=== PATIENT | female | born 1940 | race Caucasian/White ===

== ENCOUNTER 2019-02-10 07:01 | Emergency (ER) | payer MEDICARE, BC ==
[~2019-02-10] VITALS: Ht 157.5 cm; Wt 61.2 kg
[~2019-02-10 07:01] MED LIST: CYAN1000 PO; FOLI400 PO; METO25 PO; OLME40 PO; VITAMIN D2000 UNIT PO
[2019-02-10] MEDS ORDERED: ATOR10 PO (07:14)
[2019-02-10 07:29] LABS: BASOPHILS ABSOLUTE AUTO 0.05 K/mm3 (0.00-0.23); BASOPHILS PERCENT AUTO 1 % (0-2); EOSINOPHILS ABSOLUTE AUTO 0.72 K/mm3 (0.00-0.68); EOSINOPHILS PERCENT AUTO 13 % (0-6); Hematocrit 40.5 % (33.0-51.0); IMMATURE GRAN ABSOLUTE AUTO 0.02 K/mm3 (0.00-0.10); IMMATURE GRAN PERCENT AUTO 0 % (0-1); LYMPHOCYTES ABSOLUTE AUTO 1.77 K/mm3 (0.84-5.20); LYMPHOCYTES PERCENT AUTO 32 % (21-46); MONOCYTES ABSOLUTE AUTO 0.66 K/mm3 (0.16-1.47); MONOCYTES PERCENT AUTO 12 % (4-13); Mean Corpuscular HGB 29.9 pg (26.0-34.0); Mean Corpuscular HGB Conc 32.1 g/dL (31.5-36.5); Mean Corpuscular Volume 93 fL (80-100); Mean Platelet Volume 10.9 fL (9.1-12.4); NEUTROPHILS ABSOLUTE AUTO 2.39 K/mm3 (1.96-9.15); NEUTROPHILS PERCENT AUTO 43 % (41-73); Platelet Count 182 K/mm3 (150-400); RDW Coefficient Variation 13.1 % (11.7-14.2); RDW Standard Deviation 44.9 fL (35.1-46.3); Red Blood Cell Count 4.35 M/mm3 (3.80-5.20); White Blood Cell Count 5.61 K/mm3 (4.00-11.30)
[2019-02-10 07:52] LABS: Alanine Aminotransfer (ALT/SGP 27 U/L (12-78); Albumin, Blood 3.8 g/dL (3.4-5.0); Albumin/Globulin Ratio 0.9 (0.8-1.8); Alk Phos 64 U/L (50-136); Anion Gap 5 mmol/L (6-16); Aspartate Aminotrans (AST/SGOT 22 U/L (12-37); Bilirubin, Total 0.6 mg/dL (0.1-1.0); Blood Urea Nitrogen 19 mg/dL (8-24); Bun/Creatinine Ratio 24.2 (12.0-20.0); CO2, Blood 30 mmol/L (21-32); Calcium, Blood 9.8 mg/dL (8.5-10.1); Chloride, Blood 105 mmol/L (98-108); Creatinine, Blood 0.78 mg/dL (0.40-1.00); Globulin, Blood 4.3 g/dL (2.2-4.0); Glomerular Filtration Rate >60 (60-); Glucose, Blood 89 mg/dL (70-99); Potassium, Blood 3.4 mmol/L (3.5-5.5); Sodium, Blood 140 mmol/L (136-145); Total Protein, Blood 8.1 g/dL (6.4-8.2); Troponin I <0.015 ng/mL (0.000-0.040)
== END 2019-02-10 10:53 | disposition home or self-care (01) ==
LOC: ER 07:01
PROVIDERS: Emergency Medicine
DX: R07.89 Other chest pain (principal); I10 Essential (primary) hypertension; Z79.899 Other long term (current) drug therapy
CPT/HCPCS: 36415; 71046; 80053; 84484; 85025; 93005; 93010; 99285-25

== ENCOUNTER 2019-05-10 16:55 | Inpatient (IN) | payer MEDICARE, BC ==
[~2019-05-10] VITALS: Ht 162.6 cm; Wt 61.9 kg
[~2019-05-10 16:55] MED LIST changes: +ATOR10 PO
[2019-05-12] MEDS ORDERED: FISH OIL 1,0001 EAC1 PO (06:35)
--- NOTE | 2019-05-12 07:46 | NUR ---
Ambulatory in Day Surgery History, Chart, Medications and Allergies reviewed before start of procedure.Patient confirms NPO status and agrees with scheduled surgery. Patient reports completing Chlorhexadine shower X2 prior to admission to hospital.Surgical site prepped with 2% Chlorhexidine cloth wipe.
--- NOTE | 2019-05-12 10:26 | NUR ---
0954-PT BECAME TACHY WHEN LMA REMOVED. MED WITH [facility] FOR C/O HIP PAIN. DR. HEBERT NOTIFIED. 0959-ESMOLOL 30MG GIVEN BY DR. HEBERT. PT HAD MONOFOCAL PVCS IN OR PER DR. HEBERT. 1002-PT BACK TO PRETACHYCARDIA RHYTHM OF SINUS WITH SPORADIC PVCS. ALERT AND ORIENTED. STATES NO PAIN. X RAY LEFT HIP DONE.
[2019-05-12 14:48] LABS: BASOPHILS ABSOLUTE AUTO 0.02 K/mm3 (0.00-0.23); BASOPHILS PERCENT AUTO 0 % (0-2); EOSINOPHILS PERCENT AUTO 0 % (0-6); Hematocrit 33.4 % (33.0-51.0); Hemoglobin 11.1 g/dL (11.5-16.0); IMMATURE GRAN ABSOLUTE AUTO 0.04 K/mm3 (0.00-0.10); IMMATURE GRAN PERCENT AUTO 0 % (0-1); LYMPHOCYTES ABSOLUTE AUTO 0.48 K/mm3 (0.84-5.20); LYMPHOCYTES PERCENT AUTO 4 % (21-46); MONOCYTES ABSOLUTE AUTO 0.32 K/mm3 (0.16-1.47); MONOCYTES PERCENT AUTO 3 % (4-13); Mean Corpuscular HGB 30.6 pg (26.0-34.0); Mean Corpuscular HGB Conc 33.2 g/dL (31.5-36.5); Mean Corpuscular Volume 92 fL (80-100); Mean Platelet Volume 10.9 fL (9.1-12.4); NEUTROPHILS ABSOLUTE AUTO 10.82 K/mm3 (1.96-9.15); NEUTROPHILS PERCENT AUTO 93 % (41-73); Platelet Count 179 K/mm3 (150-400); RDW Coefficient Variation 12.6 % (11.7-14.2); RDW Standard Deviation 42.6 fL (35.1-46.3); Red Blood Cell Count 3.63 M/mm3 (3.80-5.20); White Blood Cell Count 11.68 K/mm3 (4.00-11.30)
[2019-05-12 15:15] LABS: Alanine Aminotransfer (ALT/SGP 24 U/L (12-78); Albumin, Blood 3.3 g/dL (3.4-5.0); Albumin/Globulin Ratio 0.9 (0.8-1.8); Alk Phos 60 U/L (50-136); Anion Gap 5 mmol/L (6-16); Aspartate Aminotrans (AST/SGOT 31 U/L (12-37); Bilirubin, Total 0.7 mg/dL (0.1-1.0); Blood Urea Nitrogen 20 mg/dL (8-24); CO2, Blood 28 mmol/L (21-32); Calcium, Blood 9.4 mg/dL (8.5-10.1); Chloride, Blood 98 mmol/L (98-108); Creatinine, Blood 0.77 mg/dL (0.40-1.00); Globulin, Blood 3.7 g/dL (2.2-4.0); Glomerular Filtration Rate >60 (60-); Glucose, Blood 210 mg/dL (70-99); Magnesium, Blood 1.5 mg/dL (1.6-2.4); Phosphorus, Blood 2.8 mg/dL (2.5-4.9); Potassium, Blood 3.5 mmol/L (3.5-5.5); Sodium, Blood 131 mmol/L (136-145)
--- NOTE | 2019-05-12 15:18 | NUR ---
NURSING PCU DAYSHIFT: Assumed care of pt at approx 1200. Arrived from OR via bed accompanied by RN, daughter at bedside. Pt and daughter oriented to unit and call system. Pt denies any pain at rest though has slight discomfort w/movement. Dressing in place to L hip r/t recent L hip sx, dressing intact, mild swelling around site, skin otherwise intact. C/O numbness in b/l feet since sx. Tele in place, afib upon arrival w/HR 150-160's, hypertensive, no noted edema, no c/o CP/pressure. L/S cta t/o, O2 sat upper 90's on RA, denies dyspnea, no noted cough. Abd SNT, BT+, c/o nausea though tolerating sips of H2O w/no emesis, voiding clear/yellow urine. PIV x1, s/l, flushes well. Admitting surgeon notified of pt's cardiac status, new d/o received for PMD consult, [facility] physician notified. PMD d/o received, meds administered as ordered. Pt converted to NSR after IV metoprolol, HR 80's w/several PVC's. PMD notified, f/u EKG completed. Pt worked w/P.T. this afternoon, tolerated fairly well and was able to xfer to BS, two staff assist used d/t pt's c/o LE numbness. No s/s of acute distress at this time, call light in reach, cont to monitor for any changes.
--- NOTE | 2019-05-12 18:03 | NUR ---
NURSING PCU DAYSHIFT SUMMARY: Pt has done well since arrival to unit. Remains NSR w/PVC's, no c/o CP/pressure, no noted palpitations. Nausea is being treated w/meds as ordered and continues to improve. Pain being well managed w/scheduled meds, pt does not required PRN pain med management at this time. Cancelled cardiology consult per PMD d/t pt remaining NSR. ECHO completed as ordered, mag rider administered. Updated plan of care discussed w/pt and daughter, questions addressed. Call light remains at bedside, pt has demonstrated appropriate use, cont to monitor until rpt is given to NOC RN.
--- NOTE | 2019-05-13 00:04 | NUR ---
PATIENT UP TO THE COMMODE WITH SBA. PATIENT INSTRUCTED HOW TO MOVE. ABLE TO USE WALKER AND TRANSFER SELF TO THE COMMODE. PATIENT BECAME NAUSATED WITH MOVEMENT. ASSISTED BACK TO BED. PATIENT ABLE TO GET INTO BED WITH NO HANDS ON.
[2019-05-13 04:15] LABS: BASOPHILS ABSOLUTE AUTO 0.01 K/mm3 (0.00-0.23); BASOPHILS PERCENT AUTO 0 % (0-2); EOSINOPHILS PERCENT AUTO 0 % (0-6); Hematocrit 30.6 % (33.0-51.0); Hemoglobin 10.3 g/dL (11.5-16.0); IMMATURE GRAN ABSOLUTE AUTO 0.06 K/mm3 (0.00-0.10); IMMATURE GRAN PERCENT AUTO 1 % (0-1); LYMPHOCYTES ABSOLUTE AUTO 1.13 K/mm3 (0.84-5.20); LYMPHOCYTES PERCENT AUTO 9 % (21-46); MONOCYTES ABSOLUTE AUTO 1.16 K/mm3 (0.16-1.47); MONOCYTES PERCENT AUTO 9 % (4-13); Mean Corpuscular HGB 30.7 pg (26.0-34.0); Mean Corpuscular HGB Conc 33.7 g/dL (31.5-36.5); Mean Corpuscular Volume 91 fL (80-100); Mean Platelet Volume 10.9 fL (9.1-12.4); NEUTROPHILS ABSOLUTE AUTO 10.95 K/mm3 (1.96-9.15); NEUTROPHILS PERCENT AUTO 82 % (41-73); Platelet Count 156 K/mm3 (150-400); RDW Coefficient Variation 12.7 % (11.7-14.2); RDW Standard Deviation 42.1 fL (35.1-46.3); Red Blood Cell Count 3.36 M/mm3 (3.80-5.20); White Blood Cell Count 13.31 K/mm3 (4.00-11.30)
[2019-05-13 04:38] LABS: Bun/Creatinine Ratio 25.7 (12.0-20.0); Calcium, Blood 9.1 mg/dL (8.5-10.1); Creatinine, Blood 1.09 mg/dL (0.40-1.00); Magnesium, Blood 1.9 mg/dL (1.6-2.4); Potassium, Blood 3.8 mmol/L (3.5-5.5)
--- NOTE | 2019-05-13 05:38 | NUR ---
PATIENT ABLE TO MOVE INDEPENDENTLY IN BED. PATIENT HAS ICE PACK TO LEFT HIP. PATIENT HAS RECIEVED PAIN MEDICATION EARLY IN THE NIGHT. COMPLAINS OF NAUSEA WITH MOVEMENT. PATIENT DAUGHTER AT BEDSIDE TELLING HER MOM WHAT TO DO OR TAKE FREQUENTLY. PATIENT EDUCATED THAT SHE DOES NOT HAVE TO DO OR TAKE ANYTHING SHE DOES NOT FEEL COMFORTABLE WITH. GIVEN EAR PLUGS AND EYE MASK TO PROMOTE SLEEP.
--- NOTE | 2019-05-13 07:23 | NUR ---
pt laying in bed awake a/ox3, pleasant and cooperative with care, follows commands well, denies any complaints of pain at this time, states PT has been getting her oob, lungs are clear t/o, resp even and unlabored, no cough noted, hrr, tele in place running sr per monitor, see strip, no edema noted ppp+2, cap refill <3sec, vs stable afebrile, iv site is clear and patent, s.l. at this time, btx4, abd flat soft nontender, voids without diff, skin has left hip dressing, with cooling device in place, no bruising, swelling, redness noted, maew, good strength in dpfe, computational biologist =, makeda, call light in reach.
--- NOTE | 2019-05-13 11:00 | NUR ---
pt has been transferred to surgical floor via wheelchair with P.T. and silk screen printer helper in attendence. report given to william MUNIZ.
--- NOTE | 2019-05-13 11:13 | NUR ---
TRANSFER: PT TRANSFER TO ROOM 213 FROM PCU. DAUGHTER AT BEDSIDE. PT AMBULATED WITH THERAPY TO ROOM. PLACED IN RECLINER CHAIR WITH POLAR PACK AND PAS IN PLACE. HUNG HOSE ON. AQUACEL DRESSING CDI. PT DENIES PAIN. ICE WATER AND COFFEE GIVEN. IV S.L. IN SPEAKING WITH PATIENT SHE SEEMS VERY UNSURE AND CONFUSED ABOUT DISCHARGE PLAN OF CARE. DISCUSSED HOSPITAL ROUTINE AND DC PLAN. REASSURED THAT MD WILL DISCUSS WITH HER FOLLOW UP AND WHEN SHE IS READY TO GO HOME.
--- NOTE | 2019-05-13 15:15 | NUR ---
THERAPY: PT UP TO AMBULATE HALLWAYS WITH SBA AND WALKER. PT DENIES PAIN AT THIS TIME. WILL CONT TO MONITOR.
--- NOTE | 2019-05-13 18:20 | NUR ---
PT HAS BEEN STABLE SINCE PCU TRANSFER. PT HAS BEEN IN NSR PER PRETZEL PACKER. PT DENIES ANY PAIN. MANAGED WITH SCHEDULED TORADOL AND TYLENOL. POLAR PACK IN PLACE. PT WORKED WELL WITH THERAPY. AMBULATES WITH SBA. VOIDING WELL. BETO DIET. LOVENOX STARTED PER [facility] DO[facility] TODAY. MEGA CDI. IV S.L. PT FORGETFUL AT TIMES BUT USES CALL LIGHT APPROPRIATELY PRN.
--- NOTE | 2019-05-14 05:49 | NUR ---
SHIFT SUMMARY NO ACUTE CHANGES NOTED THROUGH THE NIGHT. VSS, NSR WITH NO EPISODES OF AFIB NOTED. DRSG REMAINS C/D/I. PAIN MANAGED PER EMAR. 1 PERCOCET WAS GIVEN PER PT REQUEST. VOIDING WNL. 1 ASSIST TO THE BATHROOM USING FWW/GAIT BELT. EDUCATION PROVIDED ABOUT HIP PRECAUTIONS AND POSITIONING IN BED. DAUGHTER IS AT THE BEDSIDE. CALL LIGHT IN REACH
--- NOTE | 2019-05-14 09:03 | NUR ---
DR Chris SNOW HERE TO SEE PT. FAMILY PRESENT.
--- NOTE | 2019-05-14 09:10 | NUR ---
DR SNOW REPORTS MAY TAKE OFF TELE AT THIS TIME.
--- NOTE | 2019-05-14 09:20 | NUR ---
DR HURD HERE TO SEE PT.
[2019-05-14] MEDS ORDERED: METO50ER PO (13:05)
[2019-05-14] MEDS ORDERED: ACET500 PO (13:06)
[2019-05-14] MEDS ORDERED: Colace100 MG PO (13:09)
[2019-05-14] MEDS ORDERED: Milk Of Ma400 MG/5 M PO (13:10)
[2019-05-14] MEDS ORDERED: Percocet 5-3251 EACH PO (13:15)
[2019-05-14] MEDS ORDERED: CELE100 PO (13:17)
--- NOTE | 2019-05-14 13:25 | NUR ---
PT REPORTED TO HAVE PAIN IN CHEST, EPIGASTRIC AREA. PT VSS. PT TELE CONT TO BE IN ROOM, PLACED ON PT WHICH WAS NSR. PT VSS. PT REPORTED THAT IT CLEARED "MUST HAVE BEEN A BUBBLE. DR Chris SNOW NOTIFIED REPORTS PT MAY CONT WITH PLAN TO GO HOME. FAMILY IN ROOM.
--- NOTE | 2019-05-14 13:45 | NUR ---
DISCHARGE: PT EATING AND DRINKING. PT VOIDING, PASSING GAS. PT CLEARED THERAPY TO GO HOME. PT DAUGHTER TO STAY WITH PT. PT/FAMILY REPORTS HAVING APPR EQUIP AT HOME. DR HURD AND DR Chris SNOW BEEN TO SEE PT TODAY. PT SENT WITH PAPERWORK INCLUDING SCRIPT. PT DENIES CP OR SOB.
== END 2019-05-14 13:49 | disposition home or self-care (01) | DRG 470 ==
LOC: SURS 05-12 05:47 → PRE IP 05-12 07:30 → PCU 05-12 12:18 → SURS 05-13 11:13
PROVIDERS: Hospitalist; ADMIT Orthopaedic Surgery
PROC: 0SRB0JZ Replacement of Left Hip Joint with Synthetic Substitute, Open Approach (ICD-10-PCS; principal; 2019-05-12 07:30)
DX: M16.12 Unilateral primary osteoarthritis, left hip (principal); E87.1 Hypo-osmolality and hyponatremia; I47.1 Supraventricular tachycardia; R44.0 Auditory hallucinations; E78.5 Hyperlipidemia, unspecified; F41.9 Anxiety disorder, unspecified; G47.33 Obstructive sleep apnea (adult) (pediatric); G62.9 Polyneuropathy, unspecified; I10 Essential (primary) hypertension; I48.0 Paroxysmal atrial fibrillation; E87.6 Hypokalemia; E83.42 Hypomagnesemia; Z85.3 Personal history of malignant neoplasm of breast; K21.9 Gastro-esophageal reflux disease without esophagitis
CPT/HCPCS: 36415; 72170; 80048; 80053; 83735; 83880; 84100; 85025; 86850; 86900; 86901; 88300; 93005; 93010; 93306; 97110; 97116; 97161; 97530; C1776; J0690; J1100; J1650; J1885; J2250; J2405; J2704; J2765; J3010; J3475; J7120

== ENCOUNTER 2019-08-08 15:50 | Emergency (ER) | payer MEDICARE, BC ==
[~2019-08-08] VITALS: Ht 157.5 cm; Wt 59.3 kg
[~2019-08-08 15:50] MED LIST changes: +ACET500 PO; +CELE100 PO; +Colace100 MG PO; +FISH OIL 1,0001 EAC1 PO; +METO50ER PO; +Milk Of Ma400 MG/5 M PO; +Percocet 5-3251 EACH PO
[2019-08-08 16:35] LABS: BASOPHILS ABSOLUTE AUTO 0.04 K/mm3 (0.00-0.23); BASOPHILS PERCENT AUTO 1 % (0-2); EOSINOPHILS ABSOLUTE AUTO 0.43 K/mm3 (0.00-0.68); EOSINOPHILS PERCENT AUTO 7 % (0-6); Hematocrit 39.1 % (33.0-51.0); Hemoglobin 12.4 g/dL (11.5-16.0); IMMATURE GRAN ABSOLUTE AUTO 0.01 K/mm3 (0.00-0.10); IMMATURE GRAN PERCENT AUTO 0 % (0-1); LYMPHOCYTES ABSOLUTE AUTO 2.18 K/mm3 (0.84-5.20); LYMPHOCYTES PERCENT AUTO 34 % (21-46); MONOCYTES ABSOLUTE AUTO 0.73 K/mm3 (0.16-1.47); MONOCYTES PERCENT AUTO 11 % (4-13); Mean Corpuscular HGB 29.3 pg (26.0-34.0); Mean Corpuscular HGB Conc 31.7 g/dL (31.5-36.5); Mean Corpuscular Volume 92 fL (80-100); Mean Platelet Volume 11.4 fL (9.1-12.4); NEUTROPHILS ABSOLUTE AUTO 3.06 K/mm3 (1.96-9.15); NEUTROPHILS PERCENT AUTO 47 % (41-73); Platelet Count 190 K/mm3 (150-400); RDW Coefficient Variation 13.5 % (11.7-14.2); RDW Standard Deviation 45.8 fL (35.1-46.3); Red Blood Cell Count 4.23 M/mm3 (3.80-5.20); White Blood Cell Count 6.45 K/mm3 (4.00-11.30)
[2019-08-08 17:10] LABS: Alanine Aminotransfer (ALT/SGP 19 U/L (12-78); Albumin, Blood 3.4 g/dL (3.4-5.0); Albumin/Globulin Ratio 0.8 (0.8-1.8); Alk Phos 79 U/L (50-136); Anion Gap 7 mmol/L (6-16); Aspartate Aminotrans (AST/SGOT 19 U/L (12-37); Bilirubin, Total 0.5 mg/dL (0.1-1.0); Blood Urea Nitrogen 27 mg/dL (8-24); Bun/Creatinine Ratio 29.1 (12.0-20.0); CO2, Blood 26 mmol/L (21-32); Calcium, Blood 9.6 mg/dL (8.5-10.1); Chloride, Blood 105 mmol/L (98-108); Creatinine, Blood 0.93 mg/dL (0.40-1.00); Globulin, Blood 4.3 g/dL (2.2-4.0); Glomerular Filtration Rate >60 (60-); Glucose, Blood 95 mg/dL (70-99); Potassium, Blood 3.7 mmol/L (3.5-5.5); Sodium, Blood 138 mmol/L (136-145); Total Protein, Blood 7.7 g/dL (6.4-8.2); Troponin I <0.015 ng/mL (0.000-0.040)
== END 2019-08-08 16:46 | disposition left against medical advice (07) ==
LOC: EDBD 15:50 → ER 15:50
PROVIDERS: Physician Assistant
DX: Z53.21 Procedure and treatment not carried out due to patient leaving prior to being seen by health care provider (principal)
CPT/HCPCS: 36415; 80053; 84484; 85025; 93005; 93010; 99284-25

== ENCOUNTER → 2019-12-01 | Outpatient (CLI) | payer MEDICARE, BC | END | disposition home or self-care (01) | LOC: LAB EV 11:40 → LAB SHORT 11:40 | DX: R30.9 Painful micturition, unspecified (principal) | CPT/HCPCS: 87086 ==

== ENCOUNTER 2020-10-18 21:02 | Emergency (ER) | payer MEDICARE, BC ==
[~2020-10-18] VITALS: Ht 157.5 cm; Wt 68.0 kg
[~2020-10-18 21:02] MED LIST changes: +ACET325 PO; +ESCI10 PO; +LOSA50 PO; +Vitamin D2000 UNIT PO; +XARELTO15 M1 PO
[2020-10-18 22:04] LABS: BASOPHILS ABSOLUTE AUTO 0.02 K/mm3 (0.00-0.23); BASOPHILS PERCENT AUTO 0 % (0-2); EOSINOPHILS ABSOLUTE AUTO 0.34 K/mm3 (0.00-0.68); EOSINOPHILS PERCENT AUTO 7 % (0-6); Hematocrit 37.8 % (33.0-51.0); Hemoglobin 12.1 g/dL (11.5-16.0); IMMATURE GRAN ABSOLUTE AUTO 0.01 K/mm3 (0.00-0.10); IMMATURE GRAN PERCENT AUTO 0 % (0-1); LYMPHOCYTES PERCENT AUTO 34 % (21-46); MONOCYTES ABSOLUTE AUTO 0.59 K/mm3 (0.16-1.47); MONOCYTES PERCENT AUTO 11 % (4-13); Mean Corpuscular HGB 29.9 pg (26.0-34.0); Mean Corpuscular Volume 93 fL (80-100); Mean Platelet Volume 12.1 fL (9.1-12.4); NEUTROPHILS ABSOLUTE AUTO 2.47 K/mm3 (1.96-9.15); NEUTROPHILS PERCENT AUTO 47 % (41-73); Platelet Count 144 K/mm3 (150-400); RDW Coefficient Variation 13.7 % (11.7-14.2); RDW Standard Deviation 47.2 fL (35.1-46.3); Red Blood Cell Count 4.05 M/mm3 (3.80-5.20); White Blood Cell Count 5.23 K/mm3 (4.00-11.30)
[2020-10-18 22:17] LABS: Alanine Aminotransfer (ALT/SGP 24 U/L (12-78); Albumin, Blood 3.4 g/dL (3.4-5.0); Albumin/Globulin Ratio 0.8 (0.8-1.8); Alk Phos 66 U/L (50-136); Anion Gap 4 mmol/L (6-16); Aspartate Aminotrans (AST/SGOT 21 U/L (12-37); Bilirubin, Total 0.4 mg/dL (0.1-1.0); Blood Urea Nitrogen 31 mg/dL (8-24); Bun/Creatinine Ratio 44.3 (12.0-20.0); CO2, Blood 30 mmol/L (21-32); Calcium, Blood 9.7 mg/dL (8.5-10.1); Chloride, Blood 105 mmol/L (98-108); Globulin, Blood 4.1 g/dL (2.2-4.0); Glomerular Filtration Rate >60 (60-); Glucose, Blood 105 mg/dL (70-99); Potassium, Blood 4.2 mmol/L (3.5-5.5); Sodium, Blood 139 mmol/L (136-145); Total Protein, Blood 7.5 g/dL (6.4-8.2)
[2020-10-18 22:40] LABS: Troponin I <0.015 ng/mL (0.000-0.040)
== END 2020-10-19 00:08 | disposition home or self-care (01) ==
LOC: ER 21:02
PROVIDERS: Emergency Medicine
DX: R55 Syncope and collapse (principal); R11.2 Nausea with vomiting, unspecified; Z79.01 Long term (current) use of anticoagulants; Z79.899 Other long term (current) drug therapy
CPT/HCPCS: 36415; 80053; 84484; 85025; 93005; 93010; 99284-25

== ENCOUNTER → 2021-01-10 | Outpatient (CLI) | payer MEDICARE, BC ==
[2021-01-11 09:32] LABS: Candida species (DNA Probe) Negative (NEGATIVE); G. vaginalis (DNA Probe) Negative (NEGATIVE); T. vaginalis (DNA Probe) Negative (NEGATIVE)
== END | disposition home or self-care (01) ==
LOC: LAB SHORT 13:49
PROVIDERS: Family Medicine
DX: N76.0 Acute vaginitis (principal)
CPT/HCPCS: 87480; 87510; 87660

== ENCOUNTER 2021-04-06 11:46 | Emergency (ER) | payer MEDICARE, BC ==
[~2021-04-06] VITALS: Ht 154.9 cm; Wt 52.2 kg
[2021-04-06 12:28] LABS: BASOPHILS ABSOLUTE AUTO 0.03 K/mm3 (0.00-0.23); BASOPHILS PERCENT AUTO 1 % (0-2); EOSINOPHILS ABSOLUTE AUTO 0.22 K/mm3 (0.00-0.68); EOSINOPHILS PERCENT AUTO 4 % (0-6); Hematocrit 39.6 % (33.0-51.0); Hemoglobin 12.7 g/dL (11.5-16.0); IMMATURE GRAN ABSOLUTE AUTO 0.02 K/mm3 (0.00-0.10); IMMATURE GRAN PERCENT AUTO 0 % (0-1); LYMPHOCYTES ABSOLUTE AUTO 1.47 K/mm3 (0.84-5.20); LYMPHOCYTES PERCENT AUTO 27 % (21-46); MONOCYTES ABSOLUTE AUTO 0.55 K/mm3 (0.16-1.47); MONOCYTES PERCENT AUTO 10 % (4-13); Mean Corpuscular HGB 29.3 pg (26.0-34.0); Mean Corpuscular HGB Conc 32.1 g/dL (31.5-36.5); Mean Corpuscular Volume 91 fL (80-100); Mean Platelet Volume 11.8 fL (9.1-12.4); NEUTROPHILS ABSOLUTE AUTO 3.08 K/mm3 (1.96-9.15); NEUTROPHILS PERCENT AUTO 57 % (41-73); Platelet Count 162 K/mm3 (150-400); RDW Coefficient Variation 13.5 % (11.7-14.2); RDW Standard Deviation 45.4 fL (35.1-46.3); Red Blood Cell Count 4.34 M/mm3 (3.80-5.20); White Blood Cell Count 5.37 K/mm3 (4.00-11.30)
[2021-04-06 12:56] LABS: Alanine Aminotransfer (ALT/SGP 26 U/L (12-78); Albumin, Blood 3.6 g/dL (3.4-5.0); Albumin/Globulin Ratio 0.9 (0.8-1.8); Alk Phos 70 U/L (50-136); Anion Gap 3 mmol/L (6-16); Aspartate Aminotrans (AST/SGOT 30 U/L (12-37); Bilirubin, Total 0.8 mg/dL (0.1-1.0); Blood Urea Nitrogen 20 mg/dL (8-24); CO2, Blood 31 mmol/L (21-32); Calcium, Blood 9.9 mg/dL (8.5-10.1); Chloride, Blood 103 mmol/L (98-108); Creatinine, Blood 0.69 mg/dL (0.40-1.00); Globulin, Blood 4.2 g/dL (2.2-4.0); Glomerular Filtration Rate >60 (60-); Glucose, Blood 92 mg/dL (70-99); Potassium, Blood 3.9 mmol/L (3.5-5.5); Sodium, Blood 137 mmol/L (136-145); Total Protein, Blood 7.8 g/dL (6.4-8.2)
[2021-04-06 14:10] LABS: Source, Urine Clean Catch
[2021-04-06 14:14] LABS: Appearance, Urine Clear (Clear); Bilirubin, Urine Neg (Neg); Blood, Urine 1+ (Neg); Color, Urine Yellow (P-Yellow); Glucose Qualitative, Urine Neg (Neg); Ketones, Urine Neg (Neg); Leukocyte Esterase, Urine Neg (Neg); Nitrite, Urine Neg (Neg); Protein, Urine Neg (Neg); Urobilinogen, Urine NORM (Normal)
[2021-04-06 14:21] LABS: Bacteria Few /hpf; Red Blood Cells, Urine Rare /hpf (0-2); Squamous Epithelial Cells Rare /hpf (Few); White Blood Cells, Urine Rare /hpf (0-5)
== END 2021-04-06 15:25 | disposition home or self-care (01) ==
LOC: ER 11:46
PROVIDERS: Emergency Medicine
DX: M25.551 Pain in right hip (principal); I10 Essential (primary) hypertension; I48.91 Unspecified atrial fibrillation; Z88.4 Allergy status to anesthetic agent; Z88.8 Allergy status to other drugs, medicaments and biological substances; Z79.899 Other long term (current) drug therapy
CPT/HCPCS: 36415; 73502; 80053; 81001; 85025; 99283-25; A9270

== ENCOUNTER → 2021-06-24 | Outpatient (CLI) | payer MEDICARE, BC | END | disposition home or self-care (01) | LOC: LAB SHORT 15:00 | DX: R30.9 Painful micturition, unspecified (principal) | CPT/HCPCS: 87086; 87147 ==

== ENCOUNTER → 2022-02-12 | Outpatient (CLI) | payer MEDICARE, BC | END | disposition home or self-care (01) | LOC: LAB 12:15 → LAB SHORT 12:15 | DX: N39.0 Urinary tract infection, site not specified (principal) | CPT/HCPCS: 87077; 87086; 87186 ==

== ENCOUNTER 2022-10-07 20:05 | Emergency (ER) | payer MEDICARE, BC ==
[~2022-10-07] VITALS: Ht 162.6 cm; Wt 65.8 kg
[2022-10-07] MEDS ORDERED: TRAZ50 PO (20:28)
[2022-10-07] MEDS ORDERED: AMLODIPINE BESYL5 MG PO (20:28)
[2022-10-07 20:42] LABS: BASOPHILS ABSOLUTE AUTO 0.03 K/mm3 (0.00-0.23); BASOPHILS PERCENT AUTO 1 % (0-2); EOSINOPHILS ABSOLUTE AUTO 0.33 K/mm3 (0.00-0.68); EOSINOPHILS PERCENT AUTO 5 % (0-6); Hematocrit 37.8 % (33.0-51.0); Hemoglobin 12.7 g/dL (11.5-16.0); IMMATURE GRAN ABSOLUTE AUTO 0.02 K/mm3 (0.00-0.10); IMMATURE GRAN PERCENT AUTO 0 % (0-1); LYMPHOCYTES ABSOLUTE AUTO 2.13 K/mm3 (0.84-5.20); LYMPHOCYTES PERCENT AUTO 35 % (21-46); MONOCYTES ABSOLUTE AUTO 0.84 K/mm3 (0.16-1.47); MONOCYTES PERCENT AUTO 14 % (4-13); Mean Corpuscular HGB 30.5 pg (26.0-34.0); Mean Corpuscular HGB Conc 33.6 g/dL (31.5-36.5); Mean Corpuscular Volume 91 fL (80-100); Mean Platelet Volume 10.9 fL (9.1-12.4); NEUTROPHILS ABSOLUTE AUTO 2.83 K/mm3 (1.96-9.15); NEUTROPHILS PERCENT AUTO 46 % (41-73); Platelet Count 177 K/mm3 (150-400); RDW Coefficient Variation 13.8 % (11.7-14.2); RDW Standard Deviation 46.1 fL (35.1-46.3); Red Blood Cell Count 4.17 M/mm3 (3.80-5.20); White Blood Cell Count 6.18 K/mm3 (4.00-11.30)
[2022-10-07 20:57] LABS: Albumin, Blood 3.1 g/dL (3.4-5.0); Albumin/Globulin Ratio 0.7 (0.8-1.8); Bilirubin, Total 0.3 mg/dL (0.1-1.0); Bun/Creatinine Ratio 37.2 (12.0-20.0); Calcium, Blood 9.8 mg/dL (8.5-10.1); Creatinine, Blood 0.89 mg/dL (0.40-1.00); Globulin, Blood 4.2 g/dL (2.2-4.0); Potassium, Blood 4.1 mmol/L (3.5-5.5); Total Protein, Blood 7.3 g/dL (6.4-8.2)
[2022-10-07 21:54] LABS: Source, Urine Clean Catch
[2022-10-07 22:16] LABS: Appearance, Urine Cloudy (Clear); Bilirubin, Urine Neg (Neg); Blood, Urine 2+ (Neg); Color, Urine Yellow (P-Yellow); Glucose Qualitative, Urine Neg (Neg); Ketones, Urine Neg (Neg); Leukocyte Esterase, Urine 3+ (Neg); Nitrite, Urine Neg (Neg); Protein, Urine 1+ (Neg); Specific Gravity, Urine 1.015 (1.003-1.022); Urobilinogen, Urine NORM (Normal)
[2022-10-07 23:00] LABS: Bacteria Many /hpf; Red Blood Cells, Urine 0-2 /hpf (0-2); Squamous Epithelial Cells Rare /hpf (Few); White Blood Cells, Urine 50-100 /hpf (0-5)
[2022-10-07] MEDS ORDERED: CEPH500 PO (23:21)
== END 2022-10-08 00:30 | disposition home or self-care (01) ==
LOC: ER 20:05
PROVIDERS: Emergency Medicine
DX: N39.0 Urinary tract infection, site not specified (principal); R04.0 Epistaxis; I10 Essential (primary) hypertension; F03.90 Unspecified dementia, unspecified severity, without behavioral disturbance, psychotic disturbance, mood disturbance, and anxiety; Z86.73 Personal history of transient ischemic attack (TIA), and cerebral infarction without residual deficits; Z79.02 Long term (current) use of antithrombotics/antiplatelets; Z88.8 Allergy status to other drugs, medicaments and biological substances; Z79.899 Other long term (current) drug therapy
CPT/HCPCS: 71046; 80053; 81001; 85025; 93005; 93010; J0696

== ENCOUNTER 2022-11-04 00:48 | Day surgery (SDC) | payer MEDICARE, BC ==
[~2022-11-04 00:48] MED LIST changes: +AMLODIPINE BESYL5 MG PO; +CEPH500 PO; +TRAZ50 PO
== END 2022-11-04 22:47 | disposition home or self-care (01) ==
LOC: WOUND 00:48
DX: F03.90 Unspecified dementia, unspecified severity, without behavioral disturbance, psychotic disturbance, mood disturbance, and anxiety (principal); R32 Unspecified urinary incontinence; R15.9 Full incontinence of feces; K64.4 Residual hemorrhoidal skin tags; I10 Essential (primary) hypertension; M25.18 Fistula, other specified site
CPT/HCPCS: G0463

== ENCOUNTER → 2022-12-06 | Outpatient (CLI) | payer MEDICARE, BC | LOC: LAB 13:52 → LAB SHORT 13:52 | DX: N39.0 Urinary tract infection, site not specified (principal) | CPT/HCPCS: 87077; 87086; 87186 ==

== ENCOUNTER 2023-01-06 17:03 | Emergency (ER) | payer MEDICARE, BC ==
[~2023-01-06] VITALS: Ht 165.1 cm; Wt 72.6 kg
[2023-01-06] MEDS ORDERED: Miralax17 GM PO (20:36)
== END 2023-01-06 23:29 | disposition home or self-care (01) ==
LOC: ER 17:03
DX: K59.00 Constipation, unspecified (principal); F03.90 Unspecified dementia, unspecified severity, without behavioral disturbance, psychotic disturbance, mood disturbance, and anxiety; Z88.8 Allergy status to other drugs, medicaments and biological substances; Z79.899 Other long term (current) drug therapy; I10 Essential (primary) hypertension; I48.91 Unspecified atrial fibrillation; Z85.3 Personal history of malignant neoplasm of breast
CPT/HCPCS: 74018; 93005; 93010; 99284-25; A9270

== ENCOUNTER 2025-02-06 14:21 | Emergency (ER) | payer MEDICARE, BC ==
[~2025-02-06] VITALS: Ht 162.6 cm; Wt 63.5 kg
[~2025-02-06 14:21] MED LIST changes: +MEMA10 PO; +Miralax17 GM PO
[2025-02-06] MEDS ORDERED: MELA3 PO (15:18)
[2025-02-06 15:39] LABS: Source, Urine Straight Cath
[2025-02-06 15:43] LABS: Appearance, Urine Clear (Clear); Bilirubin, Urine Neg (Neg); Blood, Urine 2+ (Neg); Color, Urine Yellow (P-Yellow); Glucose Qualitative, Urine Neg (Neg); Ketones, Urine Neg (Neg); Leukocyte Esterase, Urine Neg (Neg); Nitrite, Urine Neg (Neg); Protein, Urine 1+ (Neg); Urobilinogen, Urine 1+ (Normal)
[2025-02-06] MEDS ORDERED: UQORA (15:46)
[2025-02-06 15:55] LABS: Amorphous Light (0-Heavy); Bacteria Few /hpf; Renal Epithelial Rare /hpf (0-Rare); Squamous Epithelial Cells Few /hpf (Few); White Blood Cells, Urine 0-2 /hpf (0-5)
[2025-02-06 17:30] VITALS: BP 121/72
== END 2025-02-06 17:33 | disposition home or self-care (01) ==
LOC: ER 14:21
PROVIDERS: Emergency Medicine
DX: S00.11XA Contusion of right eyelid and periocular area, initial encounter (principal); S80.211A Abrasion, right knee, initial encounter; W18.30XA Fall on same level, unspecified, initial encounter; G30.9 Alzheimer's disease, unspecified; F02.80 Dementia in other diseases classified elsewhere, unspecified severity, without behavioral disturbance, psychotic disturbance, mood disturbance, and anxiety; I10 Essential (primary) hypertension; I48.91 Unspecified atrial fibrillation; Z79.899 Other long term (current) drug therapy; Z79.01 Long term (current) use of anticoagulants; Z88.8 Allergy status to other drugs, medicaments and biological substances; Z88.5 Allergy status to narcotic agent
CPT/HCPCS: 70450; 72125; 73502; 81001; 99284-25; P9612

== ENCOUNTER 2025-06-13 14:14 | Emergency (ER) | payer MEDICARE, BC ==
[~2025-06-13] VITALS: Ht 165.1 cm; Wt 54.4 kg
[~2025-06-13 14:14] MED LIST changes: +MELA3 PO; +UQORA
[2025-06-13 14:39] VITALS: BP 120/84
[2025-06-13] MEDS ORDERED: Cephalexin Monohydrate 250 MG/5 ML UD BTL PO ONE (14:45)
[2025-06-13] MEDS ORDERED: Cephalexin250 MG/5 M PO (14:47)
== END 2025-06-13 15:09 | disposition home or self-care (01) ==
LOC: ER 14:14
DX: S81.812A Laceration without foreign body, left lower leg, initial encounter (principal); L03.116 Cellulitis of left lower limb; I10 Essential (primary) hypertension; I48.91 Unspecified atrial fibrillation; Z88.8 Allergy status to other drugs, medicaments and biological substances; Z79.899 Other long term (current) drug therapy; Z79.2 Long term (current) use of antibiotics; X58.XXXA Exposure to other specified factors, initial encounter
CPT/HCPCS: 99283; A9270